=== PATIENT | male | born 1995 | race American Indian/Alaskan Native ===

== ENCOUNTER 2020-06-20 05:04 | Emergency (ER) | payer SELFPAY ==
[2020-06-20 05:34] VITALS: BP 128/83
[2020-06-20] MEDS ORDERED: oxyCODONE /ACETAMINOPHEN 5-325MG TAB ONE (07:51)
--- NOTE | 2020-06-20 07:56 | Emergency Department Report ---
ED General Adult HPI - General Chief complaint: Earache Stated complaint: FB/RT EAR Time Seen by Provider: 06/20/20 07:14 Source: patient Mode of arrival: Ambulatory Limitations: No Limitations - History of Present Illness Initial comments: 24-year-old -Greek male patient presents with complaints of an insect crawling into his right ear and right ear irritation x today. He rates his current pain as a 4/10 in severity and denies any decreased hearing. Patient also denies any drainage or bleeding from the ear, headache, or dizziness. -: Sudden - Related Data Previous Rx's Medication Instructions Recorded Last Taken Type Acetaminophen/Codeine [Tylenol 1 tab PO Q6H PRN #10 tab 06/20/20 Unknown Rx /Codeine # 3 tab] Ibuprofen [Motrin 800 MG tab] 800 mg PO Q8HR PRN #21 tablet 06/20/20 Unknown Rx Ofloxacin 0.3% [Floxin 0.3% Otic] 10 drop OT QDAY 7 Days #1 bottle 06/20/20 Unknown Rx Allergies Allergy/AdvReac Type Severity Reaction Status Date / Time No Known Allergies Allergy Verified 06/20/20 07:52 ED Review of Systems ROS: Stated complaint: FB/RT EAR Other details as noted in HPI Constitutional: denies: chills, diaphoresis, fever, malaise, weakness ENT: ear pain. denies: throat pain, hearing loss Gastrointestinal: denies: nausea, vomiting Skin: denies: rash, lesions, change in color Hematological/Lymphatic: denies: swollen glands ED Past Medical Hx - Past Medical History Previous Medical History?: No - Surgical History Past Surgical History?: No - Social History Smoking Status: Current Some Day Smoker - Medications Home Medications: Home Medications Medication Instructions Recorded Confirmed Last Taken Type Acetaminophen/Codeine [Tylenol 1 tab PO Q6H PRN #10 tab 06/20/20 Unknown Rx /Codeine # 3 tab] Ibuprofen [Motrin 800 MG tab] 800 mg PO Q8HR PRN #21 tablet 06/20/20 Unknown Rx Ofloxacin 0.3% [Floxin 0.3% Otic] 10 drop OT QDAY 7 Days #1 bottle 06/20/20 Unknown Rx ED Physical Exam - General Limitations: No Limitations General appearance: alert, in no apparent distress - Head Head exam: Present: atraumatic, normocephalic - Eye Eye exam: Present: normal appearance - ENT ENT exam: Present: other (There is a nonmobile brown pedal like insect noted inside of the right ear canal sitting up against his tympanic membrane. The ear canal is mildly erythemic and tender along with mild erythema of the tympanic membrane.) - Neck Neck exam: Present: normal inspection, full ROM. Absent: lymphadenopathy - Respiratory Respiratory exam: Absent: respiratory distress - Cardiovascular Cardiovascular Exam: Present: regular rate - Extremities Exam Extremities exam: Present: normal inspection - Neurological Exam Neurological exam: Present: alert, oriented X3 - Psychiatric Psychiatric exam: Present: normal affect, normal mood - Skin Skin exam: Present: warm, dry, intact, normal color. Absent: rash ED Course Vital Signs 06/20/20 05:14 Temperature 98.0 F Pulse Rate 70 Respiratory 18 Rate Blood Pressure 128/83 O2 Sat by Pulse 100 Oximetry - Procedure Description Procedures done: Removal of the insect foreign body was attempted multiple times via flushing of the ear with saline and alligator forceps by myself and Dr. Delgado, however patient unable to tolerate procedure due to pain. Tympanic membrane did remain intact. ED Medical Decision Making - Medical Decision Making Patient here with insect in his right ear. Prior to me seeing the patient, lidocaine was applied to his ear and the insect was on examination. Removal of the insect foreign body was attempted multiple times via flushing of the ear with saline and alligator forceps by myself and Dr. Delgado, however patient unable to tolerate procedure due to pain. Tympanic membrane did remain intact. Discussed importance of removal of the insect due to risk of infection and TM rupture, however patient declines continue trial of removal of foreign body and states he would like to follow-up outpatient with an ENT specialist. Patient states he has to be home in 20 minutes to start school with his children and n eeds to leave immediately. His vitals are normal and he is well-appearing. Patient provided with ophthalmology referral and a prescription for ofloxacin drops. Discussed in great detail with patient signs and symptoms that should prompt immediate return to the emergency department, patient verbalizes understanding. Critical care attestation.: If time is entered above; I have spent that time in minutes in the direct care of this critically ill patient, excluding procedure time. ED Disposition Clinical Impression: Foreign body in right ear, initial encounter Disposition: TO HOME OR SELFCARE Is pt being admited?: No Condition: Stable Instructions: Ear Foreign Body (ED) Prescriptions: Ofloxacin 0.3% [Floxin 0.3% Otic] 10 drop OT QDAY 7 Days #1 bottle Ibuprofen [Motrin 800 MG tab] 800 mg PO Q8HR PRN #21 tablet PRN Reason: pain Acetaminophen/Codeine [Tylenol /Codeine # 3 tab] 1 tab PO Q6H PRN #10 tab PRN Reason: Pain , Severe (7-10) Referrals: [facility] [Provider Group] - JULIANNA Forms: AMA Form
[2020-06-20] MEDS ORDERED: oxyCODONE /ACETAMINOPHEN 5-325MG TAB PO ONE (07:58)
== END 2020-06-20 08:02 | disposition home or self-care (01) ==
LOC: ED 05:04
DX: T16.1XXA Foreign body in right ear, initial encounter (principal); F17.200 Nicotine dependence, unspecified, uncomplicated; Z79.899 Other long term (current) drug therapy; X58.XXXA Exposure to other specified factors, initial encounter; Y93.89 Activity, other specified; Y92.89 Other specified places as the place of occurrence of the external cause; Y99.8 Other external cause status
CPT/HCPCS: 99282